=== PATIENT | female | born 2000 | race Caucasian/White ===

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

== ENCOUNTER → 2020-10-29 | Outpatient (CLI) | payer BC ==
[~2020-10-29] MED LIST: ADDERALL 5 MG TA5 MG PO; PROZAC10 M2 PO; SPRINTEC 35 MCG1 TAB PO
== END ==
LOC: LAB 12:16
DX: N76.0 Acute vaginitis (principal)